=== PATIENT | female | born 1950 | race Hispanic/Latino ===

== ENCOUNTER → 2020-02-11 | Outpatient (CLI) | payer MEDICARE ==
[~2020-02-11] VITALS: Ht 160 cm; Wt 72.1 kg
[~2020-02-11] MED LIST: REGADENOSON 0.4 MG/5 ML PF SYG IVP SCH
== END | disposition home or self-care (01) ==
LOC: SHCH 07:46
PROVIDERS: ATTEND Internal Medicine Cardiovascular Disease
DX: I25.10 Atherosclerotic heart disease of native coronary artery without angina pectoris (principal)
CPT/HCPCS: 78452; 93017; 96374; A9500 ×2; J2785

== ENCOUNTER 2020-07-01 07:25 | Day surgery (SDC) | payer MEDICARE ==
[2020-06-29 14:01] LABS: BASOPHILS % (AUTO) 0.2 % (0.0-5.0); EOSINOPHILS % (AUTO) 2.9 % (0.0-8.0); HEMATOCRIT 37.8 % (36-48); LYMPHOCYTES % (AUTO) 28.5 % (21.0-51.0); MEAN CORPUSCULAR HEMOGLOBIN 32.2 pg (27.0-33.0); MEAN CORPUSCULAR HGB CONC 33.3 g/dL (32.0-36.0); MEAN CORPUSCULAR VOLUME 96.7 fL (79-99); MONOCYTES % (AUTO) 7.9 % (3.0-13.0); NEUTROPHILS % (AUTO) 60.1 % (40.0-77.0); PLATELET COUNT (AUTO) 326 K/uL (130-400); RED BLOOD CELL COUNT(AUTO) 3.91 MIL/uL (4.00-5.50)
[2020-06-29 14:06] LABS: APPEARANCE,URINE Clear (CLEAR); BILIRUBIN,URINE Negative (NEGATIVE); COLOR,URINE Yellow (YELLOW); GLUCOSE, URINE (UA) Negative (NEGATIVE); KETONES,URINE Negative (NEGATIVE); LEUKOCYTE ESTERASE ,URINE Trace (NEGATIVE); NITRATE,URINE Negative (NEGATIVE); OCCULT BLOOD,URINE Negative (NEGATIVE); PROTEIN,URINE Negative (NEGATIVE); UROBILINOGEN,URINE 0.2 mg/dL (0.2-1.0)
[2020-06-29 14:09] LABS: CREATININE 1.3 mg/dL (0.5-1.5); POTASSIUM 4.9 mmol/L (3.5-5.1)
[2020-06-29 14:12] LABS: INR 0.9 (0.85-1.15); PROTHROMBIN TIME 9.7 SEC (9.6-11.6)
[2020-06-29 14:13] LABS: PARTIAL THROMBOPLASTIN TIME 24.5 SEC (26.3-35.5)
[2020-06-29 14:17] LABS: BACTERIA,URINE Rare /HPF (None Seen); RBC,URINE 0-1 /HPF (0-1); SQUAMOUS EPITHELIAL CELL,UR Rare /HPF (0-2); WBC,URINE 0-1 /HPF (0-1)
--- NOTE | 2020-06-30 09:59 | NUR ---
LABS CRE[facility] 1.3 REPORTED AND LABS FAXED TO DR. Gogo MORROW. MESSAGE LEFT WITH [facility] AT HIS OFFICE. AWAITING FOR FURTHER ORDERS
[2020-06-30 13:20] VITALS: BP 130/60
--- NOTE | 2020-06-30 14:00 | NUR ---
labs no further orders received on lab reported of crea 1.3
[2020-07-01] VITALS (10 sets, daily range): BP systolic 115–138; BP diastolic 47–64
[~2020-07-01] VITALS: Ht 160 cm; Wt 73.4 kg
[~2020-07-01 07:25] MED LIST changes: +AMLO-257 PO; +ASPI-449 PO; +ATOR40TA71 PO; +BENZ-51 PO; +BETA1TAB20 PO; +CALC1TAB PO; +DOCU100C33 PO; +METO25TA6 PO; +NITR0.4T50 SL; +RANO500T6 PO; -REGADENOSON 0.4 MG/5 ML PF SYG IVP SCH; +SODIUM CHLORIDE 0.9% 500ML 500 ML IV SCH; +prevagen PO
[2020-07-01] MEDS ORDERED: SODIUM CHLORIDE 0.9% 1000ML 1,000 ML IV ONE (07:41)
--- NOTE | 2020-07-01 08:00 | NUR ---
preop pt arrived ambulatory in no distress. pt oriented to room and call light. will continue to monitor pt.
[2020-07-01] MEDS ORDERED: IOHEXOL 350 MG/ML 100ML INFUS..BTL IV ONE (11:06)
[2020-07-01] MEDS ORDERED: NITROGLYCERIN 2 MG/VIAL VIAL IV ONE (11:06)
[2020-07-01] MEDS ORDERED: BIVALIRUDIN 250 MG/VIAL IV ONE (11:06)
[2020-07-01] MEDS ORDERED: HEPARIN SODIUM 1000UNIT/ML 10ML VIAL ONE (11:06)
[2020-07-01] MEDS ORDERED: IOHEXOL-350 50ML VIAL IV ONE (11:07)
[2020-07-01] MEDS ORDERED: LIDOCAINE HCL 2% 20ML ONE (11:07)
--- NOTE | 2020-07-01 11:25 | NUR ---
cleaner laboratory equipment pt taken to cleaner laboratory equipment via bed in no distress.
[2020-07-01] MEDS ORDERED: MIDAZOLAM HCL 1 MG/ML 2ML VIAL ONE (11:58)
[2020-07-01] MEDS ORDERED: FENTANYL CITRATE PF 50 MCG/1 ML 2ML VIAL ONE ×2 (11:58→14:15)
[2020-07-01] MEDS ORDERED: SODIUM CHLORIDE 0.9% 1000ML 1,000 ML IV SCH (13:00)
--- NOTE | 2020-07-01 13:20 | NUR ---
post cath received pt and report from michel azevedo rn. pt in no distress. pt given post cath instructions. will continue to monitor pt.
--- NOTE | 2020-07-01 13:45 | NUR ---
report dr ames in to see pt and spoke to daughter over the phone. reported to dr ames pt c/o pain to rt groin. received new orders. see md orders.
--- NOTE | 2020-07-01 14:00 | NUR ---
report report given to bernie angel rn for continuation of care and new order for pain. rt groin free from hematoma or bleeding
[2020-07-01] MEDS ORDERED: FENTANYL CITRATE PF 50 MCG/1 ML 2ML VIAL IVP SCH (15:00)
--- NOTE | 2020-07-01 17:15 | NUR ---
dc pt dc home via [place],no distress noted. pt denied any pain or discomforts , pt accompanied by family friend . dc instructions reinforced again. rx provided to patient
== END 2020-07-01 17:15 | disposition home or self-care (01) ==
LOC: DAH 07:25
PROVIDERS: ATTEND Internal Medicine Cardiovascular Disease
DX: I25.119 Atherosclerotic heart disease of native coronary artery with unspecified angina pectoris (principal); T82.855A Stenosis of coronary artery stent, initial encounter; I25.82 Chronic total occlusion of coronary artery; I12.9 Hypertensive chronic kidney disease with stage 1 through stage 4 chronic kidney disease, or unspecified chronic kidney disease; N18.9 Chronic kidney disease, unspecified; I25.5 Ischemic cardiomyopathy; E78.5 Hyperlipidemia, unspecified; Z90.12 Acquired absence of left breast and nipple; Z92.3 Personal history of irradiation; Z92.21 Personal history of antineoplastic chemotherapy; Z98.890 Other specified postprocedural states; Z95.5 Presence of coronary angioplasty implant and graft; Z79.899 Other long term (current) drug therapy; Z79.82 Long term (current) use of aspirin; Z95.1 Presence of aortocoronary bypass graft; Z87.891 Personal history of nicotine dependence; Z82.49 Family history of ischemic heart disease and other diseases of the circulatory system; Z88.8 Allergy status to other drugs, medicaments and biological substances; Y83.8 Other surgical procedures as the cause of abnormal reaction of the patient, or of later complication, without mention of misadventure at the time of the procedure
CPT/HCPCS: 36415; 71045; 80048; 81001; 85025; 85610; 85730; 93005; 93459; A4215; A4216; A4221; A4222; A4223 ×3; A4606; A4663; C1760; C1894 ×2; J1644; J2250; J3010 ×2; J3490 ×2; J7030; Q9965 ×2; Q9967 ×2; 99156; 99157; J0583

== ENCOUNTER → 2022-03-16 | Outpatient (CLI) | payer MEDICARE ==
[~2022-03-16] MED LIST changes: -BENZ-51 PO; +BENZ-70 PO; -RANO500T6 PO; -SODIUM CHLORIDE 0.9% 500ML 500 ML IV SCH
== END | disposition home or self-care (01) ==
LOC: SHCH 14:43
PROVIDERS: ATTEND Internal Medicine Cardiovascular Disease
DX: I65.23 Occlusion and stenosis of bilateral carotid arteries (principal)
CPT/HCPCS: 93880

== ENCOUNTER → 2023-08-21 | Outpatient (CLI) | payer MEDICARE ==
[~2023-08-21] MED LIST changes: +BENZ-226 PO; -BENZ-70 PO; +REGADENOSON 0.4 MG/5 ML PF SYG IVP ONE
== END | disposition home or self-care (01) ==
LOC: SHCH 08:03
PROVIDERS: ATTEND Internal Medicine Cardiovascular Disease
DX: I25.9 Chronic ischemic heart disease, unspecified (principal); I25.112 Atherosclerotic heart disease of native coronary artery with refractory angina pectoris; Z95.1 Presence of aortocoronary bypass graft
CPT/HCPCS: 78452; 96374; 93017; J2785; A9500 ×2